=== PATIENT | female | born 1950 | race Caucasian/White ===

== ENCOUNTER 2016-11-21 10:01 | Emergency (ER) | payer OTHER ==
[2016-11-21 10:20] VITALS: RESP 18; TEMP 98.6; O2SAT 96
--- NOTE | 2016-11-21 10:59 | EDPHY ---
H & P Time Seen by Provider: 11/21/16 10:47 HPI/ROS: CHIEF COMPLAINT: Cough, congestion HISTORY OF PRESENT ILLNESS: Patient is a 66-year-old female who presents to the emergency department with URI symptoms since last Wednesday. She states she has had a cough productive of yellow sputum. She has had significant nasal congestion and runny nose. Patient denies chest pain. No shortness of breath. No leg pain or swelling. The patient has not noticed a fever. REVIEW OF SYSTEMS: My complete review of systems is negative except as mentioned in the HPI. Past Medical/Surgical History: Includes fibromyalgia, hypertension, high cholesterol Social history: The patient stop smoking tobacco 6 years ago Smoking Status: Former smoker Physical Exam: 37.0, 137/90, 100, 18, 96% on room air GENERAL: No acute distress, alert. HEENT: Eyes normal to inspection, normal pharynx, no signs of dehydration. Hoarse voice. NECK: No thyromegaly, no lymphadenopathy, supple. RESPIRATORY: Clear to auscultation bilaterally, no rales, rhonchi or wheezing. Normal. CVS: Regular rate and rhythm, no rubs, murmurs, or gallops. ABDOMEN: Soft, nontender, nondistended, no organomegaly. BACK: Normal to inspection, no CVA tenderness. SKIN: Normal color, no rash, warm, dry. No pallor. EXTREMITIES: No pedal edema, no calf tenderness, no Homans sign or cords. NEURO/PSYCH: Alert and oriented, normal mood and affect. Constitutional: Initial Vital Signs Temperature (C) 37.0 C 11/21/16 10:17 Heart Rate 100 11/21/16 10:17 Respiratory Rate 18 11/21/16 10:17 Blood Pressure 137/90 H 11/21/16 10:17 O2 Sat (%) 96 11/21/16 10:17 O2 Delivery Mode Room Air Allergies/Adverse Reactions: meperidine HCl [From Demerol] Allergy (Verified 11/21/16 10:15) prochlorperazine edisylate [From Compazine] Allergy (Verified 11/21/16 10:15) prochlorperazine maleate [From Compazine] Allergy (Verified 11/21/16 10:15) Home Medications: Medication Instructions Recorded ASA/Acetaminophn/Mag/Alh/Caff 03/24/14 Cozaar 25 mg (RX) 03/24/14 Losartan-Hctz 100-25 mg Tab 03/24/14 Simbalta 03/24/14 TRAMADOL HCL 03/24/14 Wellbutrin Xl 03/24/14 AZITHROMYCIN [Z-PACK] 250 mg PO DAILY #1 packet 11/21/16 Medical Decision Making ED Course/Re-evaluation: In the emergency department I discussed possible etiologies with the patient. I discussed the pros and cons of x-ray imaging. The patient would prefer to be treated with antibiotics rather than have x-ray imaging. Patient will be given azithromycin. She states this medication previously with no issues. She was instructed to take the entire course of antibiotics. She will continue use a decongestant. When I was leaving the room the patient requested a refill of her tramadol. She states she has ran out. I informed her that the ER would not refill pain medication. I instructed her to follow up with her primary care physician. Patient was given warnings prior to leaving. She will return with worsening symptoms. Differential Diagnosis: My differential includes but is not limited to pneumonia, bronchitis, URI, sinusitis, bacteremia, sepsis Departure - Departure Disposition: Home, Routine, Self-Care Clinical Impression: Acute bronchitis Qualifiers: Bronchitis organism: other organism Qualified Code(s): J20.8 - Acute bronchitis due to other specified organisms Condition: Good Instructions: Acute Bronchitis (ED) Additional Instructions: Take your entire course of antibiotics. Return with increasing fever, shortness of breath, cough or any other concerns. Continue to take decongestants. Referrals: JAIRON CENTENO [Other] - 2-3 days, if not improved
[2016-11-21 11:20] VITALS: BP 138/88; PULSE 98
== END 2016-11-21 11:08 | disposition home or self-care (01) ==
LOC: CED 10:01
DX: J20.8 Acute bronchitis due to other specified organisms (principal); I10 Essential (primary) hypertension; Z87.891 Personal history of nicotine dependence